=== PATIENT | male | born 1995 | race Caucasian/White ===

== ENCOUNTER 2019-11-17 02:17 | Inpatient (IN) | payer BC ==
[~2019-11-17] VITALS: Ht 185.4 cm; Wt 133.7 kg
[2019-11-17 03:55] VITALS: BP 114/68
--- NOTE | 2019-11-17 04:13 | NUR ---
NEW ADMISSION 24 YO.MALE BROUGHT TO ROOM 418 A DIRECT ADMIT FROM EXCEPTIONAL ER. ADMITTED TO HOSPITALIST SERVICE WITH PULMONARY EMBOLUS. PT HAS BEEN EXPERIENCING LEFT SIDED CHEST PAIN AND SOB X 2 DAYS. PT NOTED TO HAVE MILDLY LABORED RESPIRATIONS, LUNG SOUNDS DIMINISHED TO LEFT. O2@4L/NC. IV SITES X 2. 20G RIGHT HAND AND 20G RIGHT AC. HEPARIN INFUSING TO RIGHT AC @ 40ML/HR CONCENTRATION [id number]/500ML. HOSPITALIST PILLOW CLEANER ODALYS AT BEDSIDE. ORIENTED PT TO ROOM. CALL LIGHT IN REACH. SAFETY MEASURES IN PLACE
[2019-11-17 06:00] LABS: BASOPHILS % (AUTO) 0.2 % (0.0-5.0); EOSINOPHILS % (AUTO) 0.7 % (0.0-8.0); HEMATOCRIT 40.1 % (42-54); LYMPHOCYTES % (AUTO) 23.1 % (21.0-51.0); MEAN CORPUSCULAR HEMOGLOBIN 27.8 pg (27.0-33.0); MEAN CORPUSCULAR HGB CONC 32.7 g/dL (32.0-36.0); MEAN CORPUSCULAR VOLUME 85.1 fL (79-99); MONOCYTES % (AUTO) 12.5 % (3.0-13.0); PLATELET COUNT (AUTO) 256 K/uL (130-400); RED BLOOD CELL COUNT(AUTO) 4.71 MIL/uL (4.50-6.20); WHITE BLOOD COUNT (AUTO) 8.6 K/uL (4.8-10.8)
[2019-11-17] MEDS ORDERED: ONDANSETRON HCL 4 MG/2 ML VIAL IVP PRN (06:00)
[2019-11-17] MEDS ORDERED: ACETAMINOPHEN 325 MG TAB PO PRN (06:00)
[2019-11-17] MEDS ORDERED: FAMOTIDINE/PF 20 MG/2 ML VIAL IV SCH (06:00)
[2019-11-17] MEDS ORDERED: MORPHINE SULFATE 4 MG/1ML SYG IV PRN (06:00)
[2019-11-17] MEDS ORDERED: MORPHINE SULFATE 4 MG/1ML SYG ONE (06:05)
[2019-11-17] MEDS ORDERED: MORPHINE SULFATE 4 MG/1ML SYG IVP PRN (06:15)
[2019-11-17 06:25] LABS: ALBUMIN 3.2 g/dL (3.5-5.0); BILIRUBIN,TOTAL 0.4 mg/dL (0.2-1.0); CREATININE 1.1 mg/dL (0.5-1.5); POTASSIUM 3.9 mmol/L (3.5-5.1); TOTAL PROTEIN, SERUM 7.2 g/dL (6.0-8.3)
[2019-11-17 06:41] LABS: INR 1.01 (0.85-1.15); PROTHROMBIN TIME 10.9 SEC (9.6-11.6)
[2019-11-17 06:53] LABS: PARTIAL THROMBOPLASTIN TIME 91.6 SEC (26.3-35.5)
[2019-11-17 07:20] VITALS: BP 116/78
[2019-11-17 11:15] VITALS: BP 150/76
--- NOTE | 2019-11-17 15:34 | NUR ---
INITIAL SW spoke to patient's mother, Layla Kong. Patient lives with mother and sometimes with his father. He has no home services or DME. Patient is able to complete ADL's independently and drives. He is presently not employed at this time. Patient has no PCP. Pharmacy is [facility] located on [address] [place] [address] in [place]. As per mother, patient is a little mentally challenged and asked if she could come and stay with patient to help him remain calm. SW informed mother that she would need to speak to Creamery Worker regarding her request. No safety concerns for patient to return home upon discharge. DCP is home. Addendum: 11/17/19 at 1537 by ADDIE ARROYO Amended: Links added.
[2019-11-17 16:02] VITALS: BP 126/85
--- NOTE | 2019-11-17 19:45 | NUR ---
PM Assessment Received pt resting quietly on moderate high back rest, on Heparin drip infusing well. Routine assessment done, plan of care discuss, per pt currently denies discomfort, pain to his mid back area is OK at this time. Pt made aware that he is pending to be seen by Dr. Wellington, a Sock Ironer due to his PE. Pt denies SOB on continuous pulse oximeter monitoring, reading to the high 90's.
[2019-11-17 20:33] VITALS: BP 122/90
[2019-11-17] MEDS: HEPARIN 25000 UNITS/250 ML D5W 250 ML IV SCH (22:27)
[2019-11-17 23:52] VITALS: BP 137/84
--- NOTE | 2019-11-18 00:30 | NUR ---
Re: PTT 63.6 No change on current drip rate,kept at 22 units/hr next PTT scheduled for 0.
[2019-11-18 04:06] VITALS: BP 110/78
[2019-11-18 06:06] LABS: BASOPHILS % (AUTO) 0.4 % (0.0-5.0); EOSINOPHILS % (AUTO) 1.4 % (0.0-8.0); LYMPHOCYTES % (AUTO) 21.9 % (21.0-51.0); MEAN CORPUSCULAR HEMOGLOBIN 27.2 pg (27.0-33.0); MEAN CORPUSCULAR HGB CONC 32.4 g/dL (32.0-36.0); MEAN CORPUSCULAR VOLUME 84.1 fL (79-99); MONOCYTES % (AUTO) 12.1 % (3.0-13.0); NEUTROPHILS % (AUTO) 63.7 % (40.0-77.0); PLATELET COUNT (AUTO) 235 K/uL (130-400); RED BLOOD CELL COUNT(AUTO) 4.52 MIL/uL (4.50-6.20); RED CELL DISTRIBUTION WIDTH 12.7 % (11.0-15.5); WHITE BLOOD COUNT (AUTO) 8.4 K/uL (4.8-10.8)
[2019-11-18 06:29] LABS: ALBUMIN 2.9 g/dL (3.5-5.0); BILIRUBIN,TOTAL 0.4 mg/dL (0.2-1.0); POTASSIUM 4.2 mmol/L (3.5-5.1); TOTAL PROTEIN, SERUM 7.2 g/dL (6.0-8.3)
[2019-11-18 08:47] VITALS: BP 118/76
[2019-11-18 11:50] VITALS: BP 134/75
[2019-11-18] MEDS: ACETAMINOPHEN-CODEINE 300/30MG TAB PO PRN (16:37)
--- NOTE | 2019-11-18 16:43 | NUR ---
HEPARIN DRIP PATIENT'S PTT HAS BEEN THERAPEUTIC FOLLOWING HEPARIN FLOWSHEET PAPER FORM. SEE PAPER CHARTING/DOSING.
[2019-11-18 19:21] VITALS: BP 113/60
--- NOTE | 2019-11-18 19:30 | NUR ---
COVID RAPID TEST (-), COVID PCR DONE, BUT STILL PENDING RESULTS. Addendum: 11/18/19 at 2302 by ADDIE LOU RN RN Amended: Links added.
[2019-11-18 20:25] VITALS: BP 128/72
[2019-11-18 23:44] VITALS: BP 131/98
[2019-11-19] MEDS: HEPARIN 25000 UNITS/250 ML D5W 250 ML IV SCH ×2 (02:59→16:46)
[2019-11-19] MEDS: ACETAMINOPHEN-CODEINE 300/30MG TAB PO PRN ×2 (03:02→16:54)
[2019-11-19 03:28] VITALS: BP 124/66
[2019-11-19 07:09] LABS: BASOPHILS % (AUTO) 0.3 % (0.0-5.0); EOSINOPHILS % (AUTO) 2.3 % (0.0-8.0); LYMPHOCYTES % (AUTO) 24.5 % (21.0-51.0); MEAN CORPUSCULAR HEMOGLOBIN 27.2 pg (27.0-33.0); MEAN CORPUSCULAR HGB CONC 32.4 g/dL (32.0-36.0); MEAN CORPUSCULAR VOLUME 84.1 fL (79-99); MONOCYTES % (AUTO) 10.5 % (3.0-13.0); NEUTROPHILS % (AUTO) 61.8 % (40.0-77.0); PLATELET COUNT (AUTO) 261 K/uL (130-400); RED BLOOD CELL COUNT(AUTO) 4.52 MIL/uL (4.50-6.20); RED CELL DISTRIBUTION WIDTH 12.4 % (11.0-15.5); WHITE BLOOD COUNT (AUTO) 7.8 K/uL (4.8-10.8)
[2019-11-19 07:23] LABS: ALBUMIN 2.7 g/dL (3.5-5.0); BILIRUBIN,TOTAL 0.3 mg/dL (0.2-1.0); CREATININE 0.8 mg/dL (0.5-1.5); TOTAL PROTEIN, SERUM 7.1 g/dL (6.0-8.3)
[2019-11-19 08:00] VITALS: BP 98/53
[2019-11-19 12:00] VITALS: BP 110/68
--- NOTE | 2019-11-19 13:00 | NUR ---
DR. STRICKLAND IN TO SEE PT. UPDATE GIVEN, STATES IS GOING TO TALK TO DR. GREGORIO TO HOPEFULLY DC HEPARIN DRIP AND STAR ON PO ELIQUIS
--- NOTE | 2019-11-19 14:00 | NUR ---
PTT NOW IS 63.6, PER PROTOCOL, NO CHANGES NEED TO BE MADE ON DRIP.
[2019-11-19 16:00] VITALS: BP 131/80
--- NOTE | 2019-11-19 16:56 | NUR ---
C/O OF ABD. PAIN. MEDICATED.
[2019-11-19 20:14] VITALS: BP 146/73
--- NOTE | 2019-11-19 21:00 | NUR ---
HEPARIN DRIP PTT @2100 69.3. NO CHANGES MADE TO HEPARIN DRIP.
[2019-11-19 23:16] VITALS: BP 141/70
[2019-11-20 04:43] VITALS: BP 133/71
[2019-11-20] MEDS: ACETAMINOPHEN-CODEINE 300/30MG TAB PO PRN ×2 (05:17→23:50)
[2019-11-20 06:13] LABS: BASOPHILS % (AUTO) 0.4 % (0.0-5.0); EOSINOPHILS % (AUTO) 3.3 % (0.0-8.0); HEMATOCRIT 38.6 % (42-54); LYMPHOCYTES % (AUTO) 27.5 % (21.0-51.0); MEAN CORPUSCULAR HEMOGLOBIN 27.5 pg (27.0-33.0); MEAN CORPUSCULAR HGB CONC 33.2 g/dL (32.0-36.0); NEUTROPHILS % (AUTO) 57.2 % (40.0-77.0); PLATELET COUNT (AUTO) 292 K/uL (130-400); RED BLOOD CELL COUNT(AUTO) 4.65 MIL/uL (4.50-6.20); RED CELL DISTRIBUTION WIDTH 12.3 % (11.0-15.5); WHITE BLOOD COUNT (AUTO) 6.7 K/uL (4.8-10.8)
[2019-11-20 06:36] LABS: PARTIAL THROMBOPLASTIN TIME 65.7 SEC (26.3-35.5)
[2019-11-20 06:42] LABS: ALBUMIN 2.8 g/dL (3.5-5.0); BILIRUBIN,TOTAL 0.3 mg/dL (0.2-1.0); CRP QUANTITATIVE 176.7 mg/L (0.00-9.0); POTASSIUM 3.9 mmol/L (3.5-5.1); TOTAL PROTEIN, SERUM 7.3 g/dL (6.0-8.3)
[2019-11-20 08:00] VITALS: BP 119/68
[2019-11-20] MEDS: FOLIC ACID 1 MG TABLET PO SCH (08:08)
[2019-11-20] MEDS: CYANOCOBALAMIN (VITAMIN B-12) 1,000 MCG TABLET PO SCH (08:08)
[2019-11-20 11:00] VITALS: BP 138/68
[2019-11-20] MEDS ORDERED: PHARMACY COMMUNICATION MISC SCH (11:00)
[2019-11-20] MEDS: APIXABAN 5 MG TABLET PO SCH ×2 (11:06→21:02)
[2019-11-20] MEDS: HEPARIN 25000 UNITS/250 ML D5W 250 ML IV SCH (11:07)
[2019-11-20 16:00] VITALS: BP 128/65
[2019-11-20 19:51] VITALS: BP 136/71
[2019-11-20 23:17] VITALS: BP 128/76
[2019-11-21 03:30] VITALS: BP 143/74
[2019-11-21 07:11] LABS: BASOPHILS % (AUTO) 0.4 % (0.0-5.0); EOSINOPHILS % (AUTO) 3.3 % (0.0-8.0); HEMATOCRIT 41.6 % (42-54); LYMPHOCYTES % (AUTO) 26.8 % (21.0-51.0); MEAN CORPUSCULAR HEMOGLOBIN 27.2 pg (27.0-33.0); MEAN CORPUSCULAR HGB CONC 32.9 g/dL (32.0-36.0); MEAN CORPUSCULAR VOLUME 82.5 fL (79-99); MONOCYTES % (AUTO) 11.9 % (3.0-13.0); NEUTROPHILS % (AUTO) 56.9 % (40.0-77.0); PLATELET COUNT (AUTO) 321 K/uL (130-400); RED BLOOD CELL COUNT(AUTO) 5.04 MIL/uL (4.50-6.20); RED CELL DISTRIBUTION WIDTH 12.1 % (11.0-15.5); WHITE BLOOD COUNT (AUTO) 5.7 K/uL (4.8-10.8)
[2019-11-21 07:34] LABS: CRP QUANTITATIVE 126.1 mg/L (0.00-9.0)
--- NOTE | 2019-11-21 07:45 | NUR ---
AM ASSESSMENT PT SITTING IN BED, WATCHING TV. A/O X 3. NO SOB. NO DISTRESS NOTED. DENIES CHEST PAIN OR DISCOMFORT. DENIES PALPITATIONS. TELE: SR. DENIES N/V AND/OR DIARRHEA. BR W/ISIDRO. INSTRUCTED TO CALL FOR ASSISTANCE. CALL [place]TON W/IN REACH.
[2019-11-21 08:04] VITALS: BP 139/78
[2019-11-21] MEDS: FOLIC ACID 1 MG TABLET PO SCH (08:47)
[2019-11-21] MEDS: APIXABAN 5 MG TABLET PO SCH (08:47)
[2019-11-21] MEDS: CYANOCOBALAMIN (VITAMIN B-12) 1,000 MCG TABLET PO SCH (08:47)
[2019-11-21 11:17] VITALS: BP 136/79
--- NOTE | 2019-11-21 12:40 | NUR ---
DISCHARGE VERBAL& WRITTEN DISCHARGE INSTRUCTIONS REVIEWED & GIVEN TO PT. QUESTIONS ENCOURAGED & CLARIFIED. PROPER CARE & MGT OF PE & DVT REVIEWED. NEW PRESCRIBED MEDICATIONS REVIEWED. PRESCRIPTIONS GIVEN TO PT, SIGNED COPIES PLACED IN CHART. F/U APPTS REVIEWED. TELE REFUGIO REMOVED EARLIER. IV DC'D. PT TO GATHER PERSONAL BELONGINGS. PT TO NOTIFY STAFF WHEN FAMILY ARRIVES TO HOSPITAL TO TAKE PT HOME.
--- NOTE | 2019-11-21 14:00 | NUR ---
DISCHARGE FAMILY HERE TO TAKE PT HOME. PT TAKEN TO PRIVATE VEHICLE VIA WC BY MYSELF, Pasquale AGARWAL RN. NO DISTRESS NOTED.
== END 2019-11-21 14:45 | disposition home or self-care (01) | DRG 299 ==
LOC: 4CH 03:46
PROVIDERS: ADMIT Internal Medicine; ATTEND Internal Medicine
DX: I82.431 Acute embolism and thrombosis of right popliteal vein (principal); I26.09 Other pulmonary embolism with acute cor pulmonale; J96.01 Acute respiratory failure with hypoxia; J18.9 Pneumonia, unspecified organism; I82.412 Acute embolism and thrombosis of left femoral vein; I82.621 Acute embolism and thrombosis of deep veins of right upper extremity; Z20.828 Contact with and (suspected) exposure to other viral communicable diseases; K27.9 Peptic ulcer, site unspecified, unspecified as acute or chronic, without hemorrhage or perforation; E66.01 Morbid (severe) obesity due to excess calories; Z68.38 Body mass index [BMI] 38.0-38.9, adult; Z82.0 Family history of epilepsy and other diseases of the nervous system; Z83.3 Family history of diabetes mellitus
CPT/HCPCS: 36415; 71045; 74176; 80053; 82728; 83615; 83880; 84145; 84484; 85025; 85378; 85610; 85730; 86140; 93306; 93356; 93970; 94760; A4606; G0378; J1644; J2270; J3490; U0003